=== PATIENT | male | born 1950 | race Caucasian/White ===

== ENCOUNTER → 2018-01-09 | Outpatient (CLI) | END | disposition home or self-care (01) ==

== ENCOUNTER → 2018-01-23 | Outpatient (CLI) | END | disposition home or self-care (01) ==

== ENCOUNTER → 2018-02-03 | Outpatient (CLI) | END | disposition home or self-care (01) ==

== ENCOUNTER → 2018-03-06 | Outpatient (CLI) | payer MEDICARE, BC ==
[~2018-03-06] MED LIST: GABA300C16 PO; OXYC5CAP17 PO
--- NOTE | 2018-03-06 12:46 | PN ---
Date/Time of Note Date/Time of Note DATE: 03/06/18 TIME: 12:45 Assessment/Plan VTE Prophylaxis Pharmacological prophylaxis: NA/contraindicated Pharm contraindication: low risk/ambulating Assessment/Plan Assessment/Plan Risks and benefits of surgical treatment were discussed with the patient including but not limited to bleeding, infection, scarring and stiffness, injury to nerves and vessels, DVT and PE, fracture dislocation, leg length inequality, implant failure and need for further surgery. Patient understands and wishes to proceed. All questions were answered to his satisfaction. Pain medication was renewed Subjective 24 Hr Interval Summary Free Text/Dictation Jerardo is here for a preoperative visit related to right hip replacement scheduled for March 16, 2018. TRAM MATAMOROS Mar 06, 2018 12:46
== END | disposition home or self-care (01) ==
LOC: HKI 09:42
PROVIDERS: ATTEND Orthopaedic Surgery
DX: Z01.818 Encounter for other preprocedural examination (principal)
CPT/HCPCS: G0463

== ENCOUNTER 2018-03-16 06:22 | Inpatient (IN) | payer MEDICARE, BC ==
[2018-03-08 12:52] VITALS: BMI 28.4
[2018-03-16] VITALS (25 sets, daily range): BP systolic 111–151; BP diastolic 46–90; PULSE 58–79; RESP 7–32; Ht 177.8 cm; Wt 89.9 kg
[~2018-03-16] VITALS: Ht 177.8 cm; Wt 89.9 kg
[2018-03-16] MEDS ORDERED: POLYMYXIN B 500000 UNIT INJ ONE (06:58)
[2018-03-16] MEDS ORDERED: BACITRACIN 50000 UNITS INJ ONE (06:59)
[2018-03-16] MEDS ORDERED: DEXAMETHASONE 4 MG/ML 1 ML INJ IV ONE (07:00)
[2018-03-16] MEDS ORDERED: LACTATED RINGER'S 1,000 ML IV* SCH (07:00)
[2018-03-16] MEDS ORDERED: TRANEXAMIC ACID 1,000 MG in NS 100 ML PRE-OP X1 IVPB ONE (07:00)
[2018-03-16] MEDS ORDERED: TRANEXAMIC ACID 1,000 MG in NS 100 ML INTRA-OP X1 IVPB ONE (07:00)
[2018-03-16] MEDS ORDERED: CEFAZOLIN 2 GM/50 ML (PMX) 50 ML IVPB ONE (07:00)
[2018-03-16] MEDS ORDERED: ACETAMINOPHEN 500 MG TAB PO ONE (07:00)
[2018-03-16] MEDS ORDERED: ACETAMINOPHEN 1000MG/100ML IV 100 ML IVPB SCH (07:30)
--- NOTE | 2018-03-16 07:32 | HPN ---
Date/Time of Note Date/Time of Note DATE: 03/16/18 TIME: 07:32 Interval H&P Admission Note Pt. seen H&P reviewed: No system changes TRAM MATAMOROS Mar 16, 2018 07:32
--- NOTE | 2018-03-16 08:11 | PREAC ---
Date/Time of Note Date/Time of Note DATE: 03/16/18 TIME: 08:10 Anesthesia Eval and Record Evaluation Time Pre-Procedure Interview DATE: 03/16/18 TIME: 08:10 Age 67 Sex male NPO: 8 hrs Preoperative diagnosis Right Hip OA Planned procedure Right Total Hip Replacement Past Medical History Past Medical History: Includes Musculoskeletal: Osteoarthritis Surgery & Anesthesia Issues No known issue Meds Anticoagulation: No Beta Arabella within 24 hr: No Reason Beta Arabella not given: Pt. not on B-Arabella Reported Medications Gabapentin* (Gabapentin*) 300 Mg Capsule, 300 MG PO BID, #60 CAP 03/08/18 Oxycodone Hcl* (IR) (Oxycodone Hcl*) 5 Mg Capsule, 10 MG PO BID PRN for PAIN, CAP 03/08/18 Current Medications Lactated Ringer's 1,000 ml @ 125 mls/hr Q8H IV* ; Start 03/16/18 at 07:00; Stop 03/16/18 at 14:59 Meds reviewed: Yes Allergies Coded Allergies: No Known Allergy (Unverified , 03/16/18) Allergies Reviewed: Yes Labs/Studies Labs Reviewed: Reviewed by anesthesiologist Blood Bank Test 03/16/18 07:05 Antibody Screen NEGATIVE Blood Type B POSITIVE test: N/A Studies: ECG (n/a), CXR (n/a) Pre-procedure Exam Last vitals Vital Signs Date Temp Pulse Resp B/P (MAP) Pulse Ox O2 O2 Flow FiO2 Time Delivery Rate 03/16/18 98.0 60 18 128/77 98 Room Air 07:25 (94) Airway: Adequate mouth opening, Adequate thyromental dist Mallampati: Mallampati II Teeth: Normal Lung: Normal Heart: Normal ASA Physical Status ASA physical status: 2 Emergency: None Planned Anesthetic General/MAC: LMA Neuraxial: Spinal Nerve block: Other (Fascia Iliaca Block) Planned Pain Management Sub-arachniod narcotics, Parenteral pain med Pre-operative Attestations Prior to commencing anesthesia and surgery, the patient was re-evaluated, there was verification of: *The patient's identity *The results of appropriate recent lab work and preoperative vital signs *The above evaluation not changing prior to induction *Anesthetic plan, risk benefits, alternative and complications discussed with patient/family; questions answered; patient/family understands, accepts and wishes to proceed. VICKI SINGH MD 31, 2019 08:11
[2018-03-16] MEDS ORDERED: PROPOFOL 100 ML ONE (08:34)
[2018-03-16] MEDS ORDERED: MIDAZOLAM 1 MG/ML 2 ML INJ ONE (08:34)
[2018-03-16] MEDS ORDERED: ROPIVACAINE 0.5 % 30 ML VIAL ONE ×2 (08:34→09:11)
[2018-03-16] MEDS ORDERED: CEFAZOLIN 1 GM INJ ONE (08:34)
[2018-03-16] MEDS ORDERED: FENTAnyl 50 MCG/ML VIAL ONE (08:34)
[2018-03-16] MEDS ORDERED: KETOROLAC 30 MG INJ ONE (09:14)
[2018-03-16] MEDS ORDERED: METOCLOPRAMIDE 10 MG INJ ONE (09:14)
[2018-03-16] MEDS ORDERED: DEXAMETHASONE 4 MG/ML 5 ML INJ ONE (09:14)
[2018-03-16] MEDS ORDERED: ONDANSETRON 4 MG INJ ONE (09:14)
[2018-03-16] MEDS ORDERED: ROCURONIUM 50 MG INJ ONE (09:15)
[2018-03-16] MEDS ORDERED: LABETALOL HCL 20MG INJ ONE (09:30)
[2018-03-16] MEDS ORDERED: NALBUPHINE HCL (10 MG/1 ML) INJ IV PRN (10:00)
[2018-03-16] MEDS ORDERED: LABETALOL HCL 20MG INJ IV PRN (10:00)
[2018-03-16] MEDS ORDERED: EPHEDrine SULFATE 50 MG/5 ML SYG IV PRN (10:00)
[2018-03-16] MEDS ORDERED: MEPERIDINE 25 MG INJ IV PRN (10:00)
[2018-03-16] MEDS ORDERED: METOCLOPRAMIDE 10 MG INJ IV PRN (10:00)
[2018-03-16] MEDS ORDERED: NALOXONE (0.4 MG/ML) INJ IV PRN ×2 (10:00→10:30)
[2018-03-16] MEDS ORDERED: HYDROmorphONE 1 MG/5 ML IV SYRINGE IV PRN ×2 (10:00)
[2018-03-16] MEDS ORDERED: FENTAnyl 50 MCG/ML VIAL IV PRN ×3 (10:00)
[2018-03-16] MEDS ORDERED: ACETAMINOPHEN 500 MG TAB PO PRN (10:00)
[2018-03-16] MEDS ORDERED: DIPHENHYDRAMINE 50 MG INJ IV PRN ×2 (10:00)
[2018-03-16] MEDS ORDERED: hydrALAzine 20 MG INJ IV PRN (10:00)
[2018-03-16] MEDS ORDERED: ONDANSETRON 4 MG INJ IV PRN ×2 (10:00)
[2018-03-16] MEDS ORDERED: OXYCODONE/ACETAMINOPHEN (5/325) TAB PO PRN ×2 (10:00)
[2018-03-16] MEDS ORDERED: NEOSTIGMINE 3 MG/3 ML SYRINGE ONE (10:22)
[2018-03-16] MEDS ORDERED: GLYCOPYRROLATE 0.4 MG INJ ONE (10:22)
--- NOTE | 2018-03-16 10:24 | SIPON ---
Date/Time of Note Date/Time of Note DATE: 03/16/18 TIME: 10:23 Operative Report Preoperative Diagnosis Right hip osteoarthritis Postoperative Diagnosis Same Operation/Procedure Performed Right total hip replacement Surgeon see signature line pet care assistant HELP DESK REPRESENTATIVE Anesthesia: spinal Estimated blood loss: 250 - 300 ml's Transfusion Required none Specimen Bone Grafts/Implants [place] hip, size 14 stem, 36 mm head, 56 mm cup Complications none TRAM MATAMOROS Mar 16, 2018 10:24
[2018-03-16] MEDS ORDERED: MAGNESIUM HYDROXIDE 30ML CUP PO PRN (10:30)
[2018-03-16] MEDS ORDERED: BISACODYL 10 MG SUPP PR PRN (10:30)
[2018-03-16] MEDS ORDERED: NACL 0.9% 3 ML SYG IV SCH (10:30)
[2018-03-16] MEDS ORDERED: KETOROLAC 15 MG INJ IV PRN (10:30)
[2018-03-16] MEDS ORDERED: oxyCODONE 5 MG TAB PO PRN (10:30)
--- NOTE | 2018-03-16 10:54 | PAC ---
Date/Time of Note Date/Time of Note DATE: 03/16/18 TIME: 10:53 Post-Anesthesia Notes Post-Anesthesia Note Last documented vital signs Vital Signs Date Temp Pulse Resp B/P (MAP) Pulse Ox O2 O2 Flow FiO2 Time Delivery Rate 03/16/18 98.0 60 18 128/77 98 Room Air 11:00 (94) Activity: WNL Respiratory function: WNL Cardiovascular function: WNL Mental status: Baseline Pain reasonably controlled: Yes Hydration appropriate: Yes Nausea/Vomiting absent: Yes VICKI SINGH MD Mar 16, 2018 10:53
[2018-03-16] MEDS: HYDROmorphONE 1 MG/5 ML IV SYRINGE IV PRN ×2 (11:54→12:31)
--- NOTE | 2018-03-16 12:23 | CONS ---
Assessment/Plan Assessment/Plan Hospital Course (Demo Recall) Patient is a male with a past medical history significant for osteoarthritis of the right hip who presents to [facility] for elective right hip replacement. Patient underwent uneventful surgery and is currently in the postanesthesia care room with no acute complaints. Patient denies abdominal pain, chest pain, shortness of breath, nausea, vomiting, headache, dizziness, leg pain except for surgical site. Objective Physical exam General: Patient is laying in bed and answers questions appropriately Mentation: Patient is alert and oriented 4, Head: Normocephalic atraumatic Eyes: EOMI, pupils reactive to light Neck: Supple, nontender, midline Respiratory: Clear to auscultation bilaterally Cardiovascular: regular rate, no obvious murmurs Gastrointestinal: non-tender to palpation, bowel sounds heard. Neurological: Moves all extremities spontaneously Skin: Right hip, bandaged, CDI Assessment and plan Right hip osteoarthritis, status post right hip replacement -Orthopedic surgery to manage Disposition -Continue monitoring overnight, labs in a.m., plan on sending home with home health PT tomorrow if tolerated. Consultation Date/Type/Reason Admit Date/Time Mar 16, 2018 at 06:22 Date/Time of Note DATE: 03/16/18 TIME: 12:21 Past Medical History Home Meds Reported Medications Gabapentin* (Gabapentin*) 300 Mg Capsule, 300 MG PO BID, #60 CAP 03/08/18 Oxycodone Hcl* (IR) (Oxycodone Hcl*) 5 Mg Capsule, 10 MG PO BID PRN for PAIN, CAP 03/08/18 Medications Current Medications Lactated Ringer's 1,000 ml @ 125 mls/hr Q8H IV* Last administered on 03/16/18at 09:34; Start 03/16/18 at 07:00; Stop 03/16/18 at 14:59 Hydromorphone HCl (Dilaudid) 0.2 mg PACU PRN IV MILD PAIN 1-3; Start 03/16/18 at 10:00; Stop 03/16/18 at 17:00 Hydromorphone HCl (Dilaudid) 0.4 mg PACU PRN IV MOD PAIN 4-6 Last administered on 03/16/18at 11:54; Admin Dose 0.4 MG; Start 03/16/18 at 10:00; Stop 03/16/18 at 17:00 Hydromorphone HCl (Dilaudid) 0.6 mg PACU PRN IV SEVERE PAIN 7-10 Last administered on 03/16/18at 11:42; Admin Dose 0.6 MG; Start 03/16/18 at 10:00; Stop 03/16/18 at 17:00 Fentanyl (Sublimaze) 25 mcg PACU ORDER PRN IV MILD PAIN 1-3; Start 03/16/18 at 10:00; Stop 03/16/18 at 17:00 Fentanyl (Sublimaze) 50 mcg PACU ORDER PRN IV MOD PAIN 4-6; Start 03/16/18 at 10:00; Stop 03/16/18 at 17:00 Fentanyl (Sublimaze) 75 mcg PACU ORDER PRN IV SEVERE PAIN 7-10; Start 03/16/18 at 10:00; Stop 03/16/18 at 17:00 Oxycodone/ Acetaminophen (Percocet (5/ 325)) 1 tab PACU ORDER PRN PO .PAIN 1-5; Start 03/16/18 at 10:00; Stop 03/16/18 at 17:00 Oxycodone/ Acetaminophen (Percocet (5/ 325)) 2 tab PACU ORDER PRN PO .PAIN 6-10; Start 03/16/18 at 10:00; Stop 03/16/18 at 17:00 Ondansetron HCl (Zofran Inj) 4 mg PACU ORDER PRN IV NAUSEA/VOMITING; Start 03/16/18 at 10:00; Stop 03/16/18 at 17:00 Metoclopramide HCl (Reglan) 10 mg PACU ORDER PRN IV NAUSEA/VOMITING; Start 03/16/18 at 10:00; Stop 03/16/18 at 17:00 Labetalol HCl (Labetalol) 5 mg PACU ORDER PRN IV HIGH BLOOD PRESSURE; Start 03/16/18 at 10:00; Stop 03/16/18 at 17:00 Hydralazine HCl (Apresoline) 5 mg PACU ORDER PRN IV HIGH BLOOD PRESSURE; Start 03/16/18 at 10:00; Stop 03/16/18 at 17:00 Ephedrine Sulfate 5 mg PACU ORDER PRN IV BLOOD PRESSURE SUPPORT; Start 03/16/18 at 10:00; Stop 03/16/18 at 17:00 Meperidine HCl (Demerol) 25 mg PACU ORDER PRN IV .RIGORS Last administered on 03/16/18at 10:59; Admin Dose 25 MG; Start 03/16/18 at 10:00; Stop 03/16/18 at 17:00 Diphenhydramine HCl (Benadryl) 25 mg PACU ORDER PRN IV .PRURITUS; Start 03/16/18 at 10:00; Stop 03/16/18 at 17:00 Acetaminophen (Tylenol Tab) 500 mg Q4H PRN PO .PAIN 1-3; Start 03/16/18 at 10:00; Stop 03/16/18 at 17:00 Diphenhydramine HCl (Benadryl) 25 mg Q4H PRN IV .PRURITUS; Start 03/16/18 at 10:00; Stop 03/16/18 at 17:00 Nalbuphine HCl (Nubain) 10 mg Q4H PRN IV .PRURITUS; Start 03/16/18 at 10:00; Stop 03/16/18 at 17:00 Ondansetron HCl (Zofran Inj) 4 mg Q6H PRN IV .NAUSEA/VOMITING; Start 03/16/18 at 10:00; Stop 03/16/18 at 17:00 Naloxone HCl (Narcan) 0.2 mg Q2M PRN IV .RESP RATE; Start 03/16/18 at 10:00; Stop 03/16/18 at 17:00 Miscellaneous Information (* Miscellaneous Pharmacy Order) FENTANYL: 20 ... GIVEN NEURAXIAL XX ; Start 03/16/18 at 10:00 Lactated Ringer's 1,000 ml @ 80 mls/hr [id number] IV ; Start 03/16/18 at 10:27 Oxycodone HCl (Roxicodone) 10 mg Q4H PRN PO .PAIN; Start 03/16/18 at 10:30 Oxycodone HCl (Roxicodone) 5 mg Q4H PRN PO .PAIN; Start 03/16/18 at 10:30 Cefazolin Sodium/ Dextrose 50 ml @ 100 mls/hr Q8H IVPB ; Start 03/16/18 at 11:30; Stop 03/17/18 at 03:59 Celecoxib (Celebrex) 100 mg BID PO ; Start 03/17/18 at 09:00 Gabapentin (Neurontin) 300 mg QHS PO ; Start 03/16/18 at 21:00 Pantoprazole (Protonix Tab) 40 mg DAILY@06 PO ; Start 03/17/18 at 06:00 Docusate Sodium (Colace) 200 mg BID PO ; Start 03/17/18 at 09:00; Stop 03/19/18 at 21:01 Magnesium Hydroxide (Milk Of Mag) 30 ml HS PRN PO .CONSTIPATION; Start 03/16/18 at 10:30 Bisacodyl (Dulcolax Supp) 10 mg DAILY PRN [place] .CONSTIPATION; Start 03/16/18 at 10:30 Ketorolac Tromethamine (Toradol) 15 mg Q6H PRN IV .PAIN; Start 03/16/18 at 10:30 Naloxone HCl (Narcan) 0.2 mg Q2M PRN IV .RESP RATE; Start 03/16/18 at 10:30 IV Flush (NS 3 ml) 3 ml per protocol IV ; Start 03/16/18 at 10:30 Aspirin (Halfprin) 81 mg BID PO ; Start 03/17/18 at 09:00 Allergies: Coded Allergies: No Known Allergy (Unverified , 03/16/18) Social History Smoking Status: Former smoker Exam/Review of Systems Exam Vitals Vital Signs Date Temp Pulse Resp B/P (MAP) Pulse Ox O2 O2 Flow FiO2 Time Delivery Rate 03/16/18 99.0 65 10 111/72 8 Mask 10:44 (85) Medications Medication Current Medications Lactated Ringer's 1,000 ml @ 125 mls/hr Q8H IV* Last administered on 03/16/18at 09:34; Start 03/16/18 at 07:00; Stop 03/16/18 at 14:59 Hydromorphone HCl (Dilaudid) 0.2 mg PACU PRN IV MILD PAIN 1-3; Start 03/16/18 at 10:00; Stop 03/16/18 at 17:00 Hydromorphone HCl (Dilaudid) 0.4 mg PACU PRN IV MOD PAIN 4-6 Last administered on 03/16/18at 11:54; Admin Dose 0.4 MG; Start 03/16/18 at 10:00; Stop 03/16/18 at 17:00 Hydromorphone HCl (Dilaudid) 0.6 mg PACU PRN IV SEVERE PAIN 7-10 Last a dministered on 03/16/18at 11:42; Admin Dose 0.6 MG; Start 03/16/18 at 10:00; Stop 03/16/18 at 17:00 Fentanyl (Sublimaze) 25 mcg PACU ORDER PRN IV MILD PAIN 1-3; Start 03/16/18 at 10:00; Stop 03/16/18 at 17:00 Fentanyl (Sublimaze) 50 mcg PACU ORDER PRN IV MOD PAIN 4-6; Start 03/16/18 at 10:00; Stop 03/16/18 at 17:00 Fentanyl (Sublimaze) 75 mcg PACU ORDER PRN IV SEVERE PAIN 7-10; Start 03/16/18 at 10:00; Stop 03/16/18 at 17:00 Oxycodone/ Acetaminophen (Percocet (5/ 325)) 1 tab PACU ORDER PRN PO .PAIN 1-5; Start 03/16/18 at 10:00; Stop 03/16/18 at 17:00 Oxycodone/ Acetaminophen (Percocet (5/ 325)) 2 tab PACU ORDER PRN PO .PAIN 6-10; Start 03/16/18 at 10:00; Stop 03/16/18 at 17:00 Ondansetron HCl (Zofran Inj) 4 mg PACU ORDER PRN IV NAUSEA/VOMITING; Start 03/16/18 at 10:00; Stop 03/16/18 at 17:00 Metoclopramide HCl (Reglan) 10 mg PACU ORDER PRN IV NAUSEA/VOMITING; Start 03/16/18 at 10:00; Stop 03/16/18 at 17:00 Labetalol HCl (Labetalol) 5 mg PACU ORDER PRN IV HIGH BLOOD PRESSURE; Start 03/16/18 at 10:00; Stop 03/16/18 at 17:00 Hydralazine HCl (Apresoline) 5 mg PACU ORDER PRN IV HIGH BLOOD PRESSURE; Start 03/16/18 at 10:00; Stop 03/16/18 at 17:00 Ephedrine Sulfate 5 mg PACU ORDER PRN IV BLOOD PRESSURE SUPPORT; Start 03/16/18 at 10:00; Stop 03/16/18 at 17:00 Meperidine HCl (Demerol) 25 mg PACU ORDER PRN IV .RIGORS Last administered on 03/16/18at 10:59; Admin Dose 25 MG; Start 03/16/18 at 10:00; Stop 03/16/18 at 17:00 Diphenhydramine HCl (Benadryl) 25 mg PACU ORDER PRN IV .PRURITUS; Start 03/16/18 at 10:00; Stop 03/16/18 at 17:00 Acetaminophen (Tylenol Tab) 500 mg Q4H PRN PO .PAIN 1-3; Start 03/16/18 at 10:00; Stop 03/16/18 at 17:00 Diphenhydramine HCl (Benadryl) 25 mg Q4H PRN IV .PRURITUS; Start 03/16/18 at 10:00; Stop 03/16/18 at 17:00 Nalbuphine HCl (Nubain) 10 mg Q4H PRN IV .PRURITUS; Start 03/16/18 at 10:00; Stop 03/16/18 at 17:00 Ondansetron HCl (Zofran Inj) 4 mg Q6H PRN IV .NAUSEA/VOMITING; Start 03/16/18 at 10:00; Stop 03/16/18 at 17:00 Naloxone HCl (Narcan) 0.2 mg Q2M PRN IV .RESP RATE; Start 03/16/18 at 10:00; Stop 03/16/18 at 17:00 Miscellaneous Information (* Miscellaneous Pharmacy Order) FENTANYL: 20 ... GIVEN NEURAXIAL XX ; Start 03/16/18 at 10:00 Lactated Ringer's 1,000 ml @ 80 mls/hr [id number] IV ; Start 03/16/18 at 10:27 Oxycodone HCl (Roxicodone) 10 mg Q4H PRN PO .PAIN; Start 03/16/18 at 10:30 Oxycodone HCl (Roxicodone) 5 mg Q4H PRN PO .PAIN; Start 03/16/18 at 10:30 Cefazolin Sodium/ Dextrose 50 ml @ 100 mls/hr Q8H IVPB ; Start 03/16/18 at 11:30; Stop 03/17/18 at 03:59 Celecoxib (Celebrex) 100 mg BID PO ; Start 03/17/18 at 09:00 Gabapentin (Neurontin) 300 mg QHS PO ; Start 03/16/18 at 21:00 Pantoprazole (Protonix Tab) 40 mg DAILY@06 PO ; Start 03/17/18 at 06:00 Docusate Sodium (Colace) 200 mg BID PO ; Start 03/17/18 at 09:00; Stop 03/19/18 at 21:01 Magnesium Hydroxide (Milk Of Mag) 30 ml HS PRN PO .CONSTIPATION; Start 03/16/18 at 10:30 Bisacodyl (Dulcolax Supp) 10 mg DAILY PRN [place] .CONSTIPATION; Start 03/16/18 at 10:30 Ketorolac Tromethamine (Toradol) 15 mg Q6H PRN IV .PAIN; Start 03/16/18 at 10:30 Naloxone HCl (Narcan) 0.2 mg Q2M PRN IV .RESP RATE; Start 03/16/18 at 10:30 IV Flush (NS 3 ml) 3 ml per protocol IV ; Start 03/16/18 at 10:30 Aspirin (Halfprin) 81 mg BID PO ; Start 03/17/18 at 09:00 GLORIA CH Mar 16, 2018 12:23
[2018-03-16] MEDS: LACTATED RINGER'S 1,000 ML IV SCH ×2 (13:18→22:57)
[2018-03-16] MEDS: oxyCODONE 5 MG TAB PO PRN ×3 (14:48→22:45)
[2018-03-16] MEDS: CEFAZOLIN 2 GM/50 ML (PMX) 50 ML IVPB SCH ×2 (14:48→22:44)
[2018-03-16] MEDS ORDERED: GABAPENTIN 300 MG CAP PO SCH (21:00)
[2018-03-17 01:44] VITALS: BP 118/62; PULSE 62; RESP 17
[2018-03-17] MEDS: oxyCODONE 5 MG TAB PO PRN ×3 (03:54→11:57)
[2018-03-17] MEDS ORDERED: PANTOPRAZOLE (EC) 40 MG TAB PO SCH (06:00)
[2018-03-17] MEDS: CEFAZOLIN 2 GM/50 ML (PMX) 50 ML IVPB SCH (07:54)
[2018-03-17 08:01] VITALS: BP 126/70; PULSE 72; RESP 18
[2018-03-17] MEDS ORDERED: CELECOXIB 100 MG CAP PO SCH (09:00)
[2018-03-17] MEDS ORDERED: ASPIRIN (EC) 81 MG TAB PO SCH (09:00)
[2018-03-17] MEDS ORDERED: DOCUSATE SODIUM 100 MG CAP PO SCH (09:00)
--- NOTE | 2018-03-17 13:05 | PN ---
Date/Time of Note Date/Time of Note DATE: 03/17/18 TIME: 13:04 Objective Vitals Vital Signs Date Temp Pulse Resp B/P (MAP) Pulse Ox O2 O2 Flow FiO2 Time Delivery Rate 03/17/18 97.8 72 18 126/70 97 08:01 (88) 03/17/18 Room Air 01:44 Intake and Output 03/16/18 03/16/18 03/17/18 1515:00 23:00 07:00 IntakeIntake Total 1820 ml 1730 ml 300 ml OutputOutput Total 50 ml BalanceBalance 1770 ml 1730 ml 300 ml Results Result Diagram: 03/17/18 0435 03/17/18 0435 Medications Medications Current Medications Miscellaneous Information (* Miscellaneous Pharmacy Order) FENTANYL: 20 ... GIVEN NEURAXIAL XX ; Start 03/16/18 at 10:00 Oxycodone HCl (Roxicodone) 10 mg Q4H PRN PO .PAIN Last administered on 03/17/18at 11:57; Admin Dose 10 MG; Start 03/16/18 at 10:30 Oxycodone HCl (Roxicodone) 5 mg Q4H PRN PO .PAIN; Start 03/16/18 at 10:30 Celecoxib (Celebrex) 100 mg BID PO Last administered on 03/17/18at 08:38; Admin D ose 100 MG; Start 03/17/18 at 09:00 Gabapentin (Neurontin) 300 mg QHS PO Last administered on 03/16/18at 20:28; Admin Dose 300 MG; Start 03/16/18 at 21:00 Pantoprazole (Protonix Tab) 40 mg DAILY@06 PO Last administered on 03/17/18at 07:05; Admin Dose 40 MG; Start 03/17/18 at 06:00 Docusate Sodium (Colace) 200 mg BID PO Last administered on 03/17/18at 08:38; Admin Dose 200 MG; Start 03/17/18 at 09:00; Stop 03/19/18 at 21:01 Magnesium Hydroxide (Milk Of Mag) 30 ml HS PRN PO .CONSTIPATION; Start 03/16/18 at 10:30 Bisacodyl (Dulcolax Supp) 10 mg DAILY PRN [place] .CONSTIPATION; Start 03/16/18 at 10:30 Ketorolac Tromethamine (Toradol) 15 mg Q6H PRN IV .PAIN; Start 03/16/18 at 10:30 Naloxone HCl (Narcan) 0.2 mg Q2M PRN IV .RESP RATE; Start 03/16/18 at 10:30 IV Flush (NS 3 ml) 3 ml per protocol IV ; Start 03/16/18 at 10:30 Aspirin (Halfprin) 81 mg BID PO Last administered on 03/17/18at 08:38; Admin Dose 81 MG; Start 03/17/18 at 09:00 VTE Prophylaxis Risk score (from Ns)>0 risk: 8 SCD applied (from [facility] [place] Yes Lines/Catheters IV Catheter Type: Abebe in Place: No Assessment/Plan Hospital Course subjective no acute complaints Objective Physical exam General: Patient is laying in bed and answers questions appropriately Mentation: Patient is alert and oriented 4, Head: Normocephalic atraumatic Eyes: EOMI, pupils reactive to light Neck: Supple, nontender, midline Respiratory: Clear to auscultation bilaterally Cardiovascular: regular rate, no obvious murmurs Gastrointestinal: non-tender to palpation, bowel sounds heard. Neurological: Moves all extremities spontaneously Skin: Right hip, bandaged, CDI Assessment and plan Right hip osteoarthritis, status post right hip replacement -Orthopedic surgery to manage Disposition -ok to mn from medicine perspective, follow up with orthopedic surgery as soon as possible GLORIA CH Mar 17, 2018 13:05
[2018-03-17 13:36] VITALS: BP 134/74; PULSE 72; RESP 18
--- NOTE | 2018-03-30 08:01 | OPR ---
Date/Time of Note Date/Time of Note DATE: 03/30/18 TIME: 07:56 Operative Report Procedure Date: Mar 16, 2018 Preoperative Diagnosis Right hip osteoarthritis Postoperative Diagnosis Same Operation/Procedure Performed Right total hip replacement Surgeon see signature line Inside Sales Account Manager MARK Davila Anesthesia Type: spinal Estimated Blood Loss: 150 - 200 ml's Transfusion none Specimen Bone Grafts/Implants [place] hip, size 14 stem, 56 mm cup, 36 mm ceramic head Tubes/Drains None Complications none Pt Condition Post Procedure: stable Disposition: PACU Procedure Description Patient was placed supine on the operating room table. The right hip was prepped and draped in usual manner. An anterior incision was made. The plane between the sartorius and tensor fascia jose raul was developed in a blunt fashion. Branches of the circumflex vessels were identified and cauterized with aqua mantis. The hip capsule was opened. Advanced arthritis was encountered. The femoral neck cut was made 1 cm proximal to the lesser trochanter. The acetabular preparation was done with Randy reamers up to a size 55. A 56 mm trial cup was well fitting. The 56 Merrill cup was placed in 40 degrees of abduction and 20 degrees of anteversion. One screw was used to enhance fixation. Liner was placed to accommodate a 36 mm femoral head. The IM canal of the femur was prepared for a [place] stem. A size 14 stem was well fitting. This was placed with a standard offset neck and 36 mm head for trial reduction. The reduction was stable leg length was equal. X-rays confirm proper alignment of the implants. Once satisfactory position of the implants was confirmed, final implants were placed. Final x-rays were satisfactory. The wound was irrigated and injected with pain cocktail. The wound was closed in layers using #1 strata fix for deep fascia, 2-0 Vicryl for subcutaneous tissue and 3-0 Monocryl for the skin. Patient was transferred to the recovery room in stable condition TRAM MATAMOROS Mar 30, 2018 08:01
== END 2018-03-17 14:39 | disposition home health service (06) | DRG 470 ==
LOC: REC 06:22 → MS1 13:00
PROVIDERS: ADMIT Orthopaedic Surgery; ATTEND Orthopaedic Surgery
PROC: 0SR904A Replacement of Right Hip Joint with Ceramic on Polyethylene Synthetic Substitute, Uncemented, Open Approach (ICD-10-PCS; principal; 2018-03-16 08:30)
DX: M16.11 Unilateral primary osteoarthritis, right hip (principal)
CPT/HCPCS: 73530; 80048; 83735; 84100; 85025; 86850; 86900; 86901; 87081; 88304; 88311; 97110; 97116; 97161; 97167; 97530; C1713; C1776; J0131; J0171; J0690; J0735; J1100; J1170; J1885; J2175; J2250; J2405; J2710; J2765; J2795; J3010; J7120

== ENCOUNTER → 2018-04-03 | Outpatient (CLI) | payer MEDICARE, BC ==
--- NOTE | 2018-04-03 12:49 | PN ---
Date/Time of Note Date/Time of Note DATE: 04/03/18 TIME: 12:47 Assessment/Plan VTE Prophylaxis Pharmacological prophylaxis: other Assessment/Plan Assessment/Plan 67-year-old male who is progressing well after right hip replacement. Patient is advised to continue physical therapy and follow-up in 4-6 weeks. As his pelvic tilt improves, his leg length and gait should improve Subjective 24 Hr Interval Summary Free Text/Dictation Jerardo is about 2 weeks status post right total hip replacement. He is progressing well. Pain has decreased. He has no fever he is pleased with his outcome Exam/Review of Systems Exam Vitals Patient is afebrile Exam Examination of the right hip shows a healed incision. Range of motion of the right hip is limited. Right lower extremity appears to be 5 mm longer than the left. X-rays of the hip and pelvis were done today and show a right total hip replacement in good position with no evidence of loosening. A pelvic tilt is noted resulting in apparent leg length inequality TRAM MATAMOROS Apr 03, 2018 12:49
--- NOTE | 2018-04-04 03:19 | RADRPT ---
PROCEDURE: Pelvis and right hip study CLINICAL INDICATION: Pain TECHNIQUE: AP pelvis and AP and frog lateral views of the right hip were performed. COMPARISON: Pelvis 03/16/2018 FINDINGS: There is a total right hip prosthesis in place without dislocation or loosening. There are no acute f ractures or dislocations. No focal bony blastic or lytic lesions. The soft tissues are unremarkable. IMPRESSION: Unremarkable right hip prosthesis without evidence acute fracture or dislocation. RPTAT:AAJJ Physician Ulysses Date Time Electronically viewed and signed by Ravinder Denney Physician on 04/04/2018 03:19 /
== END | disposition home or self-care (01) ==
LOC: HKI 11:04
PROVIDERS: ATTEND Orthopaedic Surgery
DX: Z96.641 Presence of right artificial hip joint (principal)
CPT/HCPCS: 73502

== ENCOUNTER → 2018-05-01 | Outpatient (CLI) | payer MEDICARE, BC ==
--- NOTE | 2018-05-01 12:11 | PN ---
Date/Time of Note Date/Time of Note DATE: 05/01/18 TIME: 12:10 Assessment/Plan VTE Prophylaxis Pharmacological prophylaxis: other Assessment/Plan Assessment/Plan 67-year-old male who is progressing well after right hip replacement. He is cleared for full activity. He will follow-up annually. Antibiotic prophylaxis for dental treatment was discussed. Subjective 24 Hr Interval Summary Free Text/Dictation Jerardo is 6 weeks status post right total hip replacement. He is progressing well and is pleased with his outcome. Pain is decreased significantly. He is back to most of his usual activities Exam/Review of Systems Exam Exam Right hip incision is well-healed. Patient is walking without a limp. There is no leg length inequality. Right hip x-rays show a total hip replacement in good position with no evidence of loosening TRAM MATAMOROS May 01, 2018 12:11
--- NOTE | 2018-05-03 05:48 | RADRPT ---
PROCEDURE: XR pelvis and right hip. CLINICAL INDICATION: PAIN TECHNIQUE: AP pelvis, supine AP and frog lateral views of the right hip were performed. COMPARISON: DR MURRAY 04/03/2018 FINDINGS: There is a total right hip prosthesis in place without dislocation or loosening. There is normal mineralization and alignment. No acute fracture or osseous lesion is identified. Superior left hip joint space narrowing is noted. The soft tissues are unremarkable. IMPRESSION: Right total hip arthroplasty. No evidence of complication. [facility] Physician Lizbeth Date Time Electronically viewed and signed by Physician Lizbeth on 05/03/2018 05:48 CS/
== END | disposition home or self-care (01) ==
LOC: HKI 11:04
PROVIDERS: ATTEND Orthopaedic Surgery
DX: Z09 Encounter for follow-up examination after completed treatment for conditions other than malignant neoplasm (principal); Z96.641 Presence of right artificial hip joint
CPT/HCPCS: 73502